=== PATIENT | male | born 1985 | race Caucasian/White ===

== ENCOUNTER → 2020-04-08 | Outpatient (CLI) | payer OTHER ==
--- NOTE | 2020-04-08 14:31 | XR ---
EXAMINATION TYPE: XR foot complete LT, XR ankle complete LT DATE OF EXAM: 04/08/2020 CLINICAL HISTORY: S93.402A, S93.602A. Slipped off platform. TECHNIQUE: Frontal, lateral and oblique images of the left ankle and foot are obtained. COMPARISON: None. FINDINGS: There is no acute fracture/dislocation evident in the left foot or ankle. Accessory navic ular bone. The ankle mortise appears within normal limits. The joint spaces are preserved. Overlyin g soft tissue is unremarkable. IMPRESSION: There is no acute fracture or dislocation in the left ankle or foot.
== END | disposition home or self-care (01) ==
LOC: RADXRMAIN 13:54
PROVIDERS: ATTEND Emergency Medicine
DX: S93.402A Sprain of unspecified ligament of left ankle, initial encounter (principal); S93.602A Unspecified sprain of left foot, initial encounter